=== PATIENT | female | born 1975 | race African-American/Black ===

== ENCOUNTER 2018-04-13 08:29 | Emergency (ER) | payer SELFPAY ==
[~2018-04-13] VITALS: Ht 165.1 cm; Wt 86.8 kg
[~2018-04-13 08:29] MED LIST: HYDR12.5 PO
[2018-04-13 08:39] VITALS: BP 153/88
[2018-04-13] MEDS ORDERED: DEXAMETHASONE 10 MG/ML VIAL IM ONE (09:05)
[2018-04-13] MEDS ORDERED: LEVOFLOXACIN 500 MG TAB PO ONE (09:05)
[2018-04-13] MEDS ORDERED: ALBUTEROL SULFATE/IPRATROPIU 3 ML SOL IH ONE (09:05)
[2018-04-13 11:47] VITALS: BP 132/76
== END 2018-04-13 11:47 | disposition home or self-care (01) ==
LOC: MED 08:29
DX: J18.1 Lobar pneumonia, unspecified organism (principal); Z88.0 Allergy status to penicillin; Z88.8 Allergy status to other drugs, medicaments and biological substances
CPT/HCPCS: 71045; 94640; 96372; 99283; J1100; J7620; Q0092

== ENCOUNTER 2018-07-17 20:26 | Emergency (ER) | payer OTHER ==
[~2018-07-17] VITALS: Ht 165.1 cm; Wt 88.0 kg
[2018-07-17 20:31] VITALS: BP 158/99
--- NOTE | 2018-07-17 20:34 | NUR ---
PT TAKEN TO BED 7
--- NOTE | 2018-07-17 21:04 | NUR ---
42 YO FEMALE COMES TO ER FOR C/O CHEST PRESSURE. 8 /10 PAIN. NON RADIATING. PT AAOX4 SITTING UP IN GURNEY WITH FAMILY. S1 S2, NO EDEMA NOTED. LUNGS CLEAR EVEN UNLABORED. ABD SOFT NON DISTENDED. PT VOIDING CLEAR YELLOW URINE. SKIN INTACT. HX: HTN RX: HCTZ 25 MG DAILY
[2018-07-17] MEDS ORDERED: KETOROLAC 60 MG/2 ML VIAL IM ONE (21:05)
--- NOTE | 2018-07-17 22:02 | NUR ---
Dr. Mendenhall evaluating patient at bedside.
--- NOTE | 2018-07-17 22:42 | NUR ---
Patient discharged with v/s stable. Written and verbal after care instructions given and explained. Patient alert, oriented and verbalized understanding of instructions. Ambulatory with steady gait. All questions addressed prior to discharge. ID band removed. Patient advised to follow up with PMD. Rx of HYDROCHLROTHIAZIDE given. Patient educated on indication of medication including possible reaction and side effects. Opportunity to ask questions provided and answered.
[2018-07-17 22:44] VITALS: BP 148/82
== END 2018-07-17 22:42 | disposition home or self-care (01) ==
LOC: MED 20:26
DX: R00.2 Palpitations (principal); R42 Dizziness and giddiness; R10.31 Right lower quadrant pain; I10 Essential (primary) hypertension; Z88.0 Allergy status to penicillin; Z88.8 Allergy status to other drugs, medicaments and biological substances; Z79.899 Other long term (current) drug therapy
CPT/HCPCS: 81002; 81025; 93005; 96372; 99283; J1885

== ENCOUNTER 2021-09-14 13:14 | Emergency (ER) | payer BC, OTHER ==
[~2021-09-14] VITALS: Ht 165.1 cm; Wt 85.7 kg
[2021-09-14 13:36] VITALS: BP 176/105
--- NOTE | 2021-09-14 13:46 | NUR ---
Patient ambulated to bed 06 with steady/even gait.
[2021-09-14] MEDS ORDERED: PROCHLORPERAZINE 10 MG/2 ML VIAL IVP ONE (13:50)
[2021-09-14] MEDS ORDERED: diphenhydrAMINE 50 MG/ML VIAL IVP ONE (13:50)
[2021-09-14] MEDS ORDERED: NACL 0.9% 1,000 ML IV ONE (13:50)
--- NOTE | 2021-09-14 13:50 | NUR ---
45 Y/O FEMALE C/O HEADACHE, DIZZINESS, NAUSEA X 1 HOUR AFTER LUNCH. STATES TOP OF HEAD RADIATING TO R SIDE OF NECK. 02/17. +LIGHT SENSITIVITY. BP 176/105. MOTRIN 800MG AT 10AM WITHOUT RELIEF. PT IS ALERT AND ORIENED X4. PT DENIES SOB, CHEST PAIN. PMH/MEDS: DENIES ALLERGIES: PCN SX: SALPINGECTOMY, TUBAL LIGATION
--- NOTE | 2021-09-14 14:00 | NUR ---
PT TAKEN TO CT VIA TUCKER
[2021-09-14] MEDS ORDERED: KETOROLAC 15 MG/ML VIAL IVP ONE (14:35)
[2021-09-14 15:42] LABS: BASOPHILS # (AUTO) 0.1 K/uL (0.00-0.22); BASOPHILS % (AUTO) 0.8 % (0.0-2.0); EOSINOPHILS % (AUTO) 0.3 % (0.0-4.0); HEMATOCRIT 37.6 % (36-48); HEMOGLOBIN 12.2 g/dL (12.0-16.0); LYMPHOCYTES # (AUTO) 1.1 K/uL (2.5-16.5); LYMPHOCYTES % (AUTO) 15.1 % (20.5-51.1); MEAN CORPUSCULAR HEMOGLOBIN 27 pg (27-31); MEAN CORPUSCULAR HGB CONC 33 g/dL (33-37); MEAN CORPUSCULAR VOLUME 81.7 fL (80-94); MONOCYTES # (AUTO) 0.2 K/uL (0.8-1.0); MONOCYTES % (AUTO) 3.3 % (1.7-9.3); NEUTROPHILS # (AUTO) 6.1 K/uL (1.8-7.7); NEUTROPHILS % (AUTO) 80.5 % (42.2-75.2); PLATELET COUNT (AUTO) 354 K/uL (140-450); RED BLOOD CELL COUNT(AUTO) 4.61 MIL/uL (4.20-5.40); RED CELL DISTRIBUTION WIDTH 14.3 % (11.6-13.7); WHITE BLOOD COUNT (AUTO) 7.6 K/uL (4.8-10.8)
[2021-09-14 16:14] LABS: ALBUMIN 3.8 g/dL (3.4-5.0); ANION GAP 7.7 (8-16); CARBON DIOXIDE 25.8 mmol/L (21-32); CREATININE 0.8 mg/dL (0.6-1.3); POTASSIUM 3.5 mmol/L (3.5-5.1); TOTAL BILIRUBIN 0.4 mg/dL (0.0-1.0)
[2021-09-14] MEDS ORDERED: HYDROcodone/APAP 7.5/325 MG 1 TAB PO ONE (16:55)
[2021-09-14] MEDS ORDERED: amLODIPine 5 MG TAB PO ONE (17:10)
[2021-09-14] MEDS ORDERED: amLODIPine 5 MG TAB ONE (17:16)
[2021-09-14] MEDS ORDERED: AMLO5TAB PO (18:06)
[2021-09-14] MEDS ORDERED: DIPH25TA53 PO (18:08)
[2021-09-14] MEDS ORDERED: PROC-62 PO (18:08)
[2021-09-14 18:49] VITALS: BP 168/105
--- NOTE | 2021-09-14 18:50 | NUR ---
Patient discharged with v/s stable. Written and verbal after care instructions given and explained. Patient alert, oriented and verbalized understanding of instructions. Ambulatory with steady gait. All questions addressed prior to discharge. ID band removed. Patient advised to follow up with PMD. Rx of AMLODIPINE/DIPHENHYDRAMINE/COMPAZINE given. Patient educated on indication of medication including possible reaction and side effects. Opportunity to ask questions provided and answered.
--- NOTE | 2021-09-14 18:50 | NUR ---
PT BP 168/105 MADE AWARE. PT STATES SHE HAS A HISTORY OF HYPERTENSION. PT ADVISED TO SEE PRIMARY CARE PHYSCIAN FOR FOLLOW UP.
--- NOTE | 2021-09-16 19:33 | NUR ---
LATE ENTRY. NS BOLUS DISCONTINUED AT 1849 ON 09/14/21
== END 2021-09-14 18:54 | disposition home or self-care (01) ==
LOC: MED 13:14
DX: R51.9 Headache, unspecified (principal); R42 Dizziness and giddiness; R11.0 Nausea; I10 Essential (primary) hypertension; Z79.899 Other long term (current) drug therapy; Z88.0 Allergy status to penicillin; Z88.8 Allergy status to other drugs, medicaments and biological substances
CPT/HCPCS: 36415; 70450; 80053; 81002; 81025; 85025; 96361; 96374; 96375; 99284; J0780; J1200; J1885; J7030

== ENCOUNTER 2022-06-20 21:21 | Emergency (ER) | payer OTHER ==
[~2022-06-20] VITALS: Ht 165.1 cm; Wt 81.6 kg
[~2022-06-20 21:21] MED LIST changes: +AMLO5TAB PO; +DIPH25TA53 PO; +PROC-87 PO
[2022-06-20 21:30] VITALS: BP 172/100
--- NOTE | 2022-06-20 21:33 | NUR ---
TO LOBBY A/W BED AMBULATORY
--- NOTE | 2022-06-21 00:02 | NUR ---
TO BED 03.
[2022-06-21] MEDS ORDERED: ACETAMINOPHEN 325 MG TAB PO ONE (00:25)
[2022-06-21] MEDS ORDERED: NACL 0.9% 1,000 ML IV ONE (00:25)
--- NOTE | 2022-06-21 00:32 | NUR ---
PT IS FOR HEADACHE 02/17. ALERT AND ORIENTED X AND AMBULATORY.
[2022-06-21 00:46] LABS: APPEARANCE,URINE CLEAR (CLEAR); BILIRUBIN,URINE NEGATIVE (NEGATIVE); BLOOD, URINE NEGATIVE (NEGATIVE); COLOR,URINE YELLOW (YELLOW); LEUKOCYTE ESTERASE ,URINE TRACE (NEGATIVE); NITRITE, URINE NEGATIVE (NEGATIVE); UGLUCOSE NEGATIVE (NEGATIVE)
[2022-06-21] MEDS ORDERED: KETOROLAC 15 MG/ML VIAL IVP ONE (00:50)
[2022-06-21] MEDS ORDERED: diphenhydrAMINE 50 MG/ML VIAL IVP ONE (00:50)
[2022-06-21] MEDS ORDERED: PROCHLORPERAZINE 10 MG/2 ML VIAL IVP ONE (00:50)
[2022-06-21 00:59] LABS: RBC,URINE 0-5 /HPF (0-5); WBC,URINE 0-5 /HPF (0-5)
[2022-06-21 03:32] VITALS: BP 172/100
--- NOTE | 2022-06-21 03:33 | NUR ---
Patient discharged with v/s stable. Written and verbal after care instructions given and explained. Patient verbalized understanding. Ambulatory with steady gait. All questions addressed prior to discharge. Advised to follow up with PMD. pt left with her belonging
--- NOTE | 2022-06-26 13:44 | NUR ---
LATE ENTRY -- CONFIRMED WITH NURSE NS INFUSION COMPLETED AT 0200 06/21/22
== END 2022-06-21 03:32 | disposition home or self-care (01) ==
LOC: MED 21:21
DX: I10 Essential (primary) hypertension (principal); R51.9 Headache, unspecified; Z79.899 Other long term (current) drug therapy; Z88.0 Allergy status to penicillin; Z88.8 Allergy status to other drugs, medicaments and biological substances
CPT/HCPCS: 81001; 81025; 96361; 96374; 96375; 99284; J0780; J1200; J1885; J7030